=== PATIENT | female | born 1955 | race African-American/Black ===

== ENCOUNTER 2018-03-27 18:43 | Inpatient (IN) | payer OTHER ==
--- NOTE | 2018-03-27 18:48 | PDOC ---
Rapid Medical Evaluation Time Seen by Provider: 03/27/18 18:44 Medical Evaluation: Allergies Allergy/AdvReac Type Severity Reaction Status Date / Time No Known Allergies Allergy Verified 03/27/18 18:44 I have performed a brief in-person evaluation of this patient. The patient presents with a chief complaint of: left hand weakness x 3 days and slurred speech since yesterday Pertinent physical exam findings: slurred speech, weakness and mild droop of left hand I have ordered the following: head CT The patient will proceed to the ED for further evaluation. Discharge Disposition - Diagnosis Hand weakness, Slurred speech - Referrals - Patient Instructions - Post Discharge Activity
[2018-03-27 20:00] LABS: BASO % 1.1 % (0-2.0); EOS % 1.9 % (0-4.5); HEMATOCRIT 40.7 % (32.4-45.2); HEMOGLOBIN 13.5 GM/dL (10.7-15.3); LYMPH % 46.4 % (8-40); MCHC 33.1 g/dl (32.0-36.0); MEAN CELL VOLUME 84.7 fl (80-96); MEAN PLT VOLUME 8.9 fl (7.5-11.1); MONO % 9.5 % (3.8-10.2); NEUT % 41.1 % (42.8-82.8); PLATELET COUNT 243 K/MM3 (134-434); RBC 4.81 M/mm3 (3.60-5.2); RDW 13.6 % (11.6-15.6)
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
[2018-03-27 20:20] LABS: INR 1.11 (0.82-1.09); PROTHROMBIN TIME (PATIENT) 12.5 SEC (9.7-13.0)
[2018-03-27 20:23] LABS: ACTIVATED PTT 27.5 SECONDS (25.2-36.5)
[2018-03-27 20:33] LABS: ALBUMIN 3.9 g/dl (3.4-5.0); ANION GAP 6 (8-16); BLOOD UREA NITROGEN 12 mg/dL (7-18); CALCIUM 8.8 mg/dL (8.5-10.1); CHLORIDE 108 mmol/L (98-107); CO2 27 mmol/L (21-32); CREATININE 0.7 mg/dL (0.55-1.02); GLUCOSE,RANDOM 102 mg/dL (74-106); SGPT/ALT 34 U/L (12-78); SODIUM 141 mmol/L (136-145); TOT PROT 8.3 g/dl (6.4-8.2)
[2018-03-27 20:55] LABS: ALK PHOS 84 U/L (45-117); BILIRUBIN,TOTAL 0.5 mg/dL (0.2-1.0); SGOT/AST 24 U/L (15-37)
--- NOTE | 2018-03-27 21:38 | HP ---
Admitting History and Physical - Primary Care Physician PCP: Mari Quintana - Admission Chief Complaint: left arm weakness History of Present Illness: The patient is a 62 year old male with no significant past medical history who presents to the emergency department with left arm weakness for 3 days. The patient reports that she been unable to raise her arm above her head and notes that when she is carrying an object in her left hand she will unintentionally drop the object. She denies any slurred speech. She endorses a history of EtOH use and denies history of smoking. - - Smoking History Smoking history: Current every day smoker Have you smoked in the past 12 months: Yes Aproximately how many cigarettes per day: 7 - Alcohol/Substance Use Hx Alcohol Use: Yes Home Medications - Allergies Allergies/Adverse Reactions: Allergies Allergy/AdvReac Type Severity Reaction Status Date / Time No Known Allergies Allergy Verified 03/27/18 18:44 - Home Medications Home Medications: Ambulatory Orders NK [No Known Home Medication] 03/27/18 Review of Systems - Review of Systems Neurological: reports: Weakness Physical Examination Vital Signs: Vital Signs Temperature 98.6 F 03/27/18 18:47 Pulse Rate 97 H 03/27/18 18:47 Respiratory Rate 18 03/27/18 18:47 Blood Pressure 158/90 03/27/18 18:47 O2 Sat by Pulse Oximetry (%) 100 03/27/18 18:47 Constitutional: Yes: No Distress HENT: Yes: Atraumatic Neck: Yes: Supple Cardiovascular: Yes: Regular Rate and Rhythm Respiratory: Yes: CTA Bilaterally Gastrointestinal: Yes: Normal Bowel Sounds Extremities: Yes: WNL Edema: No Neurological: Yes: Alert, Oriented ...Motor Strength: LUE (4/5..hand) Labs: CBC, BMP 03/27/18 19:46 03/27/18 19:46 Problem List - Problems (1) Cerebrovascular accident (CVA) Assessment/Plan: awaiting mri other studies are done Code(s): I63.9 - CEREBRAL INFARCTION, UNSPECIFIED (2) Hand weakness Assessment/Plan: PT eval monitor Code(s): R29.898 - OTH SYMPTOMS AND SIGNS INVOLVING THE MUSCULOSKELETAL SYSTEM Assessment/Plan Laboratory Tests 03/27/18 03/27/18 03/27/18 19:46 19:46 19:46 WBC 8.0 RBC 4.81 Hgb 13.5 Hct 40.7 MCV 84.7 MCH 28.0 MCHC 33.1 RDW 13.6 Plt Count 243 MPV 8.9 Absolute Neuts (auto) 3.3 Neutrophils % 41.1 L Lymphocytes % 46.4 H Monocytes % 9.5 Eosinophils % 1.9 Basophils % 1.1 Nucleated RBC % 0 PT with INR 12.50 INR 1.11 PTT (Actin FS) 27.5 Sodium 141 Potassium 4.0 Chloride 108 H Carbon Dioxide 27 Anion Gap 6 L BUN 12 Creatinine 0.7 Creat Clearance w eGFR > 60 Random Glucose 102 Calcium 8.8 Total Bilirubin 0.5 AST 24 ALT 34 Alkaline Phosphatase 84 Creatine Kinase 454 H Troponin I < 0.02 Total Protein 8.3 H Albumin 3.9
[2018-03-27] MEDS ORDERED: ACETAMINOPHEN 325 MG TABLET (FP) PO PRN (21:49)
--- NOTE | 2018-03-28 08:47 | CON.NEURO ---
Consult Consult Specialty:: Neurology Referred by:: Dr. Quintana Reason for Consultation:: Left arm weakness - History of Present Illness Chief Complaint: Left Arm weakness for 3 days History of Present Illness: Patient reports onset of left arm weakness 3 days ago. Resisted coming to hospital but sisters kept harrassing her and finally she relented. No headache , chest pain or other ill feelings accompanied the weakness. She denies weakness elsewhere. Denies cocaine or illicit drug use. Doesn't have a regular doctor but says that she last saw a doctor 3 months ago for a "check up " and that she was fine. - History Source History Provided By: Patient, Medical Record Limitations to Obtaining History: No Limitations - Past Medical History GYN: Yes: Other (esotropia) - Alcohol/Substance Use Hx Alcohol Use: Yes - Smoking History Smoking history: Current every day smoker Have you smoked in the past 12 months: Yes Aproximately how many cigarettes per day: 7 Home Medications - Allergies Allergies/Adverse Reactions: Allergies Allergy/AdvReac Type Severity Reaction Status Date / Time No Known Allergies Allergy Verified 03/27/18 18:44 - Home Medications Home Medications: Ambulatory Orders NK [No Known Home Medication] 03/27/18 Physical Exam-Neuro Vital Signs: Vital Signs Temperature 98.6 F 03/27/18 18:47 Pulse Rate 90 03/28/18 06:34 Respiratory Rate 16 03/28/18 06:34 Blood Pressure 144/80 03/28/18 06:34 O2 Sat by Pulse Oximetry (%) 96 03/28/18 06:34 Constitutional: Yes: Well Nourished, No Distress, Calm Labs: CBC, BMP 03/27/18 19:46 03/27/18 19:46 INR, PTT INR 1.11 (0.82-1.09) 03/27/18 19:46 - Neuro Exam Level Of Consciousness: Yes: Alert, Oriented to Person, Oriented to Place, Oriented to Time Eyes: Yes: GHANSHYAM (EOMI but R esotropia) Speech: WNL Cranial Nerves II-XII Intact: No (right esotropia (long standing)) DTR's: 0 Left Achilles, 0 Right Achilles, 2+ Left Bicep, 2+ Right Bicep, 2+ Left Tricep, 2+ Right Tricep, 2+ Left Brachioradialis, 2+ Right Brachioradialis Babinski: Absent (withdrawal) Response to light touch: Normal Response to pain prick: Normal Motor Strength: 4/5: Left Arm (hand, rest of arm is strong), 5/5: Right Arm, Left Leg, Right Leg Gait: Normal NIH Stroke Scale - Last Known Well Date/Time & Onset Date Last Known Well: 03/24/18 - Initial Evaluation Level of consciousness: Alert Ask patient the month and their age: Answers both correctly Ask patient to open & close eyes; make fist and let go: Obeys both correctly Best gaze (horizontal eye movement): Partial gaze palsy Visual field testing: No visual field loss Facial paresis (Show teeth/raise eyebrows/close eyes tight): Normal symmetrical movement Motor Function: Left Arm: Normal Motor Function: Right Arm: Normal (extends arm 90 (or 45) degrees for 10 seconds without drift Motor Function: Left Leg: Normal (extends leg 30 degrees for 5 seconds without drift) Motor Function: Right Leg: Normal (extends leg 30 degrees for 5 seconds without drift) Limb Ataxia: No ataxia Sensory(Use pinprick test arms,legs,trunk,face/side to side): Normal Best language (Describe picture, name items, read sentences): No Aphasia Dysarthria (read several words): Normal articulation Extinction and Inattention: No abnormality (esotropia is only abnormality. She has no drift, but distal weakness which doesn't impact NIHSS) - Total Score NIH Stroke Scale Score: 1 Imaging - Results Cat Scan: Report Reviewed, Image Reviewed Problem List - Problems (1) Cerebrovascular accident (CVA) Code(s): I63.9 - CEREBRAL INFARCTION, UNSPECIFIED (2) Hand weakness Code(s): R29.898 - OT SYMPTOMS AND SIGNS INVOLVING THE MUSCULOSKELETAL SYSTEM (3) Slurred speech Code(s): R47.81 - SLURRED SPEECH Assessment/Plan Stroke, 3 days prior to presentation. Delayed going to ER, and knew that she should have but didn't want to. She should be started on ASA and statin, get lipid panel, urine tox screen though this may no longer show any metabolites, and have MRI, MRA, carotid studies, Echo with bubble study and secured entrance monitor, which if negative should be followed by longer term outpatient monitor. Thanks. Will follow up with you.
--- NOTE | 2018-03-28 11:53 | EKG ---
Test Reason : Blood Pressure : / mmHG Vent. Rate : 084 BPM Atrial Rate : 084 BPM P-R Int : 146 ms QRS Dur : 076 ms QT Int : 384 ms P-R-T Axes : 051 034 021 degrees QTc Int : 453 ms NORMAL SINUS RHYTHM POSSIBLE LEFT ATRIAL ENLARGEMENT LEFT VENTRICULAR HYPERTROPHY ABNORMAL ECG NO PREVIOUS ECGS AVAILABLE Confirmed by WINDY DOMINGO, GEORGE ([id number]) on 03/28/2018 11:52:43 AM Referred By: Confirmed By:GEORGE TEMPLE MD
--- NOTE | 2018-03-28 15:30 | CONSULT ---
Admitting History and Physical - Primary Care Physician PCP: Mari Quintana - Admission History of Present Illness: Per EMR: The patient is a 62 year old male with no significant past medical history who presents to the emergency department with left arm weakness for 3 days. The patient reports that she been unable to raise her arm above her head and notes that when she is carrying an object in her left hand she will unintentionally drop the object. She denies any slurred speech. She endorses a history of EtOH use and denies history of smoking. Pt denies changes in speech production or swallowing but drops items with left hand. 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: Other (esotropia) - Smoking History Smoking history: Current every day smoker Have you smoked in the past 12 months: Yes Aproximately how many cigarettes per day: 7 - Alcohol/Substance Use Hx Alcohol Use: Yes History - Admission Reason For Visit: CVA - Diagnostics CT Scan: Report Reviewed (Acute/subacute R TP and BG.) - General Mental Status: Alert and Oriented, Awake and Alert, Able to Follow Commands Attention: Intact Ability to Follow Directions: Good Head/Neck Control: WFL - Hearing Hearing: Functional Speech Evaluation - Communication Primary Language: KINYARWANDA Communication: Yes: Dysarthria Oral Expression Ability: Yes: Mild Impairment - Speech Production Able to Make Needs Known: Yes: WNL Intelligibility: Yes: Mildly Impaired - Speech Characteristics Voice Loudness: Normal Voice Pitch: Yes: Normal Voice Phonatory-based Quality: Yes: Normal Speech Clarity: < 100% Nasal Resonance: Hypernasal (mild?) Articulation: Yes: Imprecise - Language/Auditory Comprehension Follows: Yes: 1 Stage Simple Commands Observation: Able to respond to yes/no queries: Yes, Yes/No Confusion: No, Comprehends Conversational Speech: Yes - Language/Verbal Expression Able to Respond to Simple Queries: Yes: WNL Able to Communicate Wants and Needs: Yes: WNL Functional Communication Status: Yes: WNL - Swallow Evaluation/Bedside Assessment Current Nutritional Intake: Soft, Thin Liquids Oral Secretions: Yes: WFL Dentition: Yes: Edentulous (lower), Dental Appliance Upper Facial Symmetry at Rest: Facial Droop Left Against Resistance Opening: Normal Against Resistance Closing: Normal Pucker Lips: Normal Lingual Movement: Symmetric Lingual Speed of Movement: Normal Lingual Movement Strgth Against Opposition: Normal Lingual Movement Characteristics: Normal Laryngeal Elevation: WFL Laryngeal Movement: Able to Palpate Labial Seal: WFL Chewing: WFL (no lower dentition but eats reg food.) Oral Prep Time: WFL A-P Transit: WFL Pocketing: None Timing of Swallow: WFL Coughing/Throat Clear: No Change in Voice: No Recommendations - Speech Evaluation, Impression/Plan Impression: Dysarthria? Pt reports speech at baseline. Left facial. Mild Hypernasality? Swallowing overtly intact - Dysphagia Impressions/Plan Dysphagia Impressions: Minimal Impairment, Ongoing Evaluation *Silent aspiration: cannot be R/O at bedside Dysphagia Treatment Plan: Small Bites, Chin Tuck/Down, 1/2 tsp. at a time, OOB for meals, OOB for 1 h. after meals Recommendations: Modified Barium Swallow (if s/s of dysphagia) - Recommendations Diet Consistency: Regular (soft? pt wants regular) Medication Administration: Whole with water Liquids: Thin Liquids
--- NOTE | 2018-03-28 16:24 | PN ---
Progress Note, Physician - Current Medication List Current Medications: Active Medications Acetaminophen (Tylenol -) 650 mg PO Q6H PRN PRN Reason: FEVER Aspirin (Ecotrin -) 81 mg PO DAILY [facility] Atorvastatin Calcium (Lipitor -) 40 mg PO HS [facility] - Objective Vital Signs: Vital Signs Temperature 98.1 F 03/28/18 10:00 Pulse Rate 81 03/28/18 10:00 Respiratory Rate 19 03/28/18 10:00 Blood Pressure 144/88 03/28/18 10:00 O2 Sat by Pulse Oximetry (%) 96 03/28/18 09:00 Constitutional: Yes: No Distress HENT: Yes: Atraumatic Neck: Yes: Supple Cardiovascular: Yes: Regular Rate and Rhythm Respiratory: Yes: CTA Bilaterally Gastrointestinal: Yes: Normal Bowel Sounds Extremities: Yes: WNL Edema: No Peripheral Pulses WNL: Yes Neurological: Yes: Alert, Oriented ...Motor Strength: LUE (weak.. hand) Labs: CBC, BMP 03/27/18 19:46 03/27/18 19:46 INR, PTT INR 1.11 (0.82-1.09) 03/27/18 19:46 Problem List - Problems (1) Cerebrovascular accident (CVA) Assessment/Plan: awaiting mri other studies are done Code(s): I63.9 - CEREBRAL INFARCTION, UNSPECIFIED (2) Hand weakness Assessment/Plan: PT eval monitor Code(s): R29.898 - OTH SYMPTOMS AND SIGNS INVOLVING THE MUSCULOSKELETAL SYSTEM
[2018-03-28 17:07] VITALS: BMI 30.7
[2018-03-28] MEDS: ASPIRIN COATED 81 MG TABLET.EC PO SCH (18:42)
[2018-03-28] MEDS: ATORVASTATIN CA 40 MG TABLET (FP) PO SCH (21:52)
[2018-03-29] MEDS: ASPIRIN COATED 81 MG TABLET.EC PO SCH (10:36)
--- NOTE | 2018-03-29 16:22 | PN ---
Progress Note, Physician Chief Complaint: left hand weakness History of Present Illness: Patient reports onset of left arm weakness 3 days ago. Resisted coming to hospital but sisters kept harrassing her and finally she relented. No headache , chest pain or other ill feelings accompanied the weakness. She denies weakness elsewhere. Denies cocaine or illicit drug use. Doesn't have a regular doctor but says that she last saw a doctor 3 months ago for a "check up " and that she was fine. She has no real change overnight. - Current Medication List Current Medications: Active Medications Acetaminophen (Tylenol -) 650 mg PO Q6H PRN PRN Reason: FEVER Aspirin (Ecotrin -) 81 mg PO DAILY [facility] Last Admin: 03/29/18 10:36 Dose: 81 mg Atorvastatin Calcium (Lipitor -) 40 mg PO HS [facility] Last Admin: 03/28/18 21:52 Dose: 40 mg - Objective Vital Signs: Vital Signs Temperature 98.3 F 03/29/18 14:20 Pulse Rate 78 03/29/18 14:20 Respiratory Rate 18 03/29/18 14:20 Blood Pressure 139/57 03/29/18 14:20 O2 Sat by Pulse Oximetry (%) 98 03/28/18 21:00 Neurological: Yes: Alert, Oriented, Cran Nerves II-XII Intact ...Motor Strength: LUE (left hand mild weakness) Labs: CBC, BMP 03/27/18 19:46 03/27/18 19:46 INR, PTT INR 1.11 (0.82-1.09) 03/27/18 19:46 Problem List - Problems (1) Cerebrovascular accident (CVA) Code(s): I63.9 - CEREBRAL INFARCTION, UNSPECIFIED (2) Hand weakness Code(s): R29.898 - OT SYMPTOMS AND SIGNS INVOLVING THE MUSCULOSKELETAL SYSTEM (3) Slurred speech Code(s): R47.81 - SLURRED SPEECH Assessment/Plan Stroke, 3 days prior to presentation. Delayed going to ER, and knew that she should have but didn't want to. She should be started on ASA and statin, get lipid panel, urine tox screen though this may no longer show any metabolites, and have MRI, MRA, carotid studies, Echo with bubble study (bubble study not done here and can be deferred until outpatient) and cardiac cath lab technologist, which if negative should be followed by longer term outpatient monitor. Thanks. Will follow up with you.
--- NOTE | 2018-03-29 18:34 | PN ---
Progress Note, Physician - Current Medication List Current Medications: Active Medications Acetaminophen (Tylenol -) 650 mg PO Q6H PRN PRN Reason: FEVER Aspirin (Ecotrin -) 81 mg PO DAILY [facility] Last Admin: 03/29/18 10:36 Dose: 81 mg Atorvastatin Calcium (Lipitor -) 40 mg PO HS [facility] Last Admin: 03/28/18 21:52 Dose: 40 mg - Objective Vital Signs: Vital Signs Temperature 98.2 F 03/29/18 18:03 Pulse Rate 83 03/29/18 18:03 Respiratory Rate 18 03/29/18 18:03 Blood Pressure 140/92 03/29/18 18:03 O2 Sat by Pulse Oximetry (%) 98 03/28/18 21:00 Constitutional: Yes: No Distress HENT: Yes: Atraumatic Neck: Yes: Supple Cardiovascular: Yes: Regular Rate and Rhythm Respiratory: Yes: CTA Bilaterally Gastrointestinal: Yes: Normal Bowel Sounds Extremities: Yes: WNL Edema: No Peripheral Pulses WNL: Yes Neurological: Yes: Alert, Oriented ...Motor Strength: LUE (left hand weak 4/5) Labs: CBC, BMP 03/27/18 19:46 03/27/18 19:46 INR, PTT INR 1.11 (0.82-1.09) 03/27/18 19:46 Problem List - Problems (1) Cerebrovascular accident (CVA) Assessment/Plan: mri/mra waiting awaiting neuro input Code(s): I63.9 - CEREBRAL INFARCTION, UNSPECIFIED (2) Hand weakness Assessment/Plan: PT eval monitor Code(s): R29.898 - OTH SYMPTOMS AND SIGNS INVOLVING THE MUSCULOSKELETAL SYSTEM
[2018-03-29] MEDS: ATORVASTATIN CA 40 MG TABLET (FP) PO SCH (22:03)
[2018-03-30] MEDS: ASPIRIN COATED 81 MG TABLET.EC PO SCH (10:14)
--- NOTE | 2018-03-30 17:56 | CON.NEURO ---
Consult Consult Specialty:: NEUROLOGY-CHARLINE DOMINGO - History of Present Illness History of Present Illness: Patient reports onset of left arm weakness 3 days ago. Resisted coming to hospital but sisters kept harrassing her and finally she relented. No headache , chest pain or other ill feelings accompanied the weakness. She denies weakness elsewhere. Denies cocaine or illicit drug use. Doesn't have a regular doctor but says that she last saw a doctor 3 months ago for a "check up " and that she was fine. Reports no further neurologic symptoms. Exam- left arm pronator drift only. MRI/MRA brain-Right fronto/temp/parietal diffusion deficits. MRA- right M1 segment MCA thrombus, incidental left pcom aneurysm. A+P:Pt. with right MCA territory infarct, fortunately with minimal neurologic deficit, MCA thrombus is clearly evident on MRI.Pcom aneurysm is incidental, small and does not require intervention. Would place on ASA 325mg/Statin at current doses. Will follow up as outpt. with Dr. Pagan, i have given her our office# and my secretary to the vice president will call her on Sunday too. Will refer her to neuroradiology, Dr. Isma Pina for opinion re;possible endovascular rx. of MCA thrombus. 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: Other (esotropia) ...: No - Alcohol/Substance Use Hx Alcohol Use: Yes - Smoking History Smoking history: Current every day smoker Have you smoked in the past 12 months: Yes Aproximately how many cigarettes per day: 7 Home Medications - Allergies Allergies/Adverse Reactions: Allergies Allergy/AdvReac Type Severity Reaction Status Date / Time No Known Allergies Allergy Verified 03/27/18 18:44 - Home Medications Home Medications: Ambulatory Orders NK [No Known Home Medication] 03/27/18 Physical Exam-Neuro Vital Signs: Vital Signs Temperature 98.2 F 03/30/18 14:10 Pulse Rate 71 03/30/18 14:10 Respiratory Rate 20 03/30/18 14:10 Blood Pressure 134/57 03/30/18 14:10 O2 Sat by Pulse Oximetry (%) 97 03/30/18 09:00 Labs: CBC, BMP 03/27/18 19:46 03/27/18 19:46 INR, PTT INR 1.11 (0.82-1.09) 03/27/18 19:46
--- NOTE | 2018-03-30 17:58 | PN ---
Progress Note, Physician History of Present Illness: stable - Current Medication List Current Medications: Active Medications Acetaminophen (Tylenol -) 650 mg PO Q6H PRN PRN Reason: FEVER Aspirin (Ecotrin -) 81 mg PO DAILY [facility] Last Admin: 03/30/18 10:14 Dose: 81 mg Atorvastatin Calcium (Lipitor -) 40 mg PO HS [facility] Last Admin: 03/29/18 22:03 Dose: 40 mg - Objective Vital Signs: Vital Signs Temperature 98.2 F 03/30/18 14:10 Pulse Rate 71 03/30/18 14:10 Respiratory Rate 20 03/30/18 14:10 Blood Pressure 134/57 03/30/18 14:10 O2 Sat by Pulse Oximetry (%) 97 03/30/18 09:00 Constitutional: Yes: No Distress HENT: Yes: Atraumatic Neck: Yes: Supple Cardiovascular: Yes: Regular Rate and Rhythm Respiratory: Yes: CTA Bilaterally Gastrointestinal: Yes: Normal Bowel Sounds Extremities: Yes: Other (L hand wekness) Edema: No Neurological: Yes: Alert, Oriented Labs: CBC, BMP 03/27/18 19:46 03/27/18 19:46 INR, PTT INR 1.11 (0.82-1.09) 03/27/18 19:46 Problem List - Problems (1) Cerebrovascular accident (CVA) Assessment/Plan: mri/mra done report reviewed awaiting neuro input Code(s): I63.9 - CEREBRAL INFARCTION, UNSPECIFIED (2) Hand weakness Code(s): R29.898 - OTH SYMPTOMS AND SIGNS INVOLVING THE MUSCULOSKELETAL SYSTEM
--- NOTE | 2018-03-30 18:44 | DS ---
Physical Examination Vital Signs: Vital Signs Temperature 98.2 F 03/30/18 14:10 Pulse Rate 71 03/30/18 14:10 Respiratory Rate 20 03/30/18 14:10 Blood Pressure 134/57 03/30/18 14:10 O2 Sat by Pulse Oximetry (%) 97 03/30/18 09:00 Constitutional: Yes: No Distress HENT: Yes: Atraumatic Neck: Yes: Supple Cardiovascular: Yes: Regular Rate and Rhythm Respiratory: Yes: CTA Bilaterally Gastrointestinal: Yes: Normal Bowel Sounds Extremities: Yes: WNL Neurological: Yes: Alert, Oriented Labs: CBC, BMP 03/27/18 19:46 03/27/18 19:46 Discharge Summary Reason For Visit: CVA Current Active Problems Cerebrovascular accident (CVA) (Acute) Hand weakness (Acute) Slurred speech (Acute) Condition: Stable - Instructions Diet, Activity, Other Instructions: stop smoking stop drinking cannot go back to work until seen by neurology next week check lipid panel with pmd Referrals: Reena Anderson MD [Staff Physician] - Mari Quintana MD [Staff Physician] - - Home Medications Comprehensive Discharge Medication List: Ambulatory Orders Aspirin Coated [Ecotrin -] 325 mg PO DAILY #30 tablet. 03/30/18 Atorvastatin Ca [Lipitor] 40 mg PO HS #30 tablet 03/30/18 [facility] d/w dr castellon d/w parker henderson
[2018-03-30 19:08] VITALS: BP 161/85; PULSE 77; TEMP 97.7
[2018-03-31] MEDS ORDERED: ASPIRIN 325 MG ENTERIC COATED TABLET (FP) PO SCH (10:00)
== END 2018-03-30 19:45 | disposition home or self-care (01) | DRG 65 ==
LOC: JER 18:43 → JERBED 20:06 → OBSVTOIN 21:47 → J4W 03-28 15:23
PROVIDERS: ADMIT Internal Medicine; ATTEND Internal Medicine
DX: I63.9 Cerebral infarction, unspecified (principal); G81.94 Hemiplegia, unspecified affecting left nondominant side; F17.210 Nicotine dependence, cigarettes, uncomplicated; R47.81 Slurred speech; R29.703 NIHSS score 3
CPT/HCPCS: 36415; 70450-TC; 70544-TC; 70551-TC; 71046-TC-FY; 80053; 82550; 82553; 84484; 85025; 85610; 85730; 93005; 93010; 93306-TC; 93880-TC; 97116-GP; 97161-GP; 99285-25; G0378

== ENCOUNTER 2018-08-14 08:25 | Emergency (ER) | payer OTHER ==
[2018-08-14 08:32] VITALS: BMI 29.8
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
[2018-08-14] MEDS ORDERED: ACETAMINOPHEN 325 MG TABLET (FP) PO ONE (09:15)
[2018-08-14] MEDS ORDERED: ACETAMINOPHEN 325 MG TABLET (FP) ONE (09:32)
[2018-08-14 11:14] VITALS: BP 167/89; PULSE 87; TEMP 97.2
== END 2018-08-14 11:14 | disposition home or self-care (01) ==
LOC: JER 08:25
DX: M79.89 Other specified soft tissue disorders (principal); E78.5 Hyperlipidemia, unspecified; Z86.73 Personal history of transient ischemic attack (TIA), and cerebral infarction without residual deficits; Z87.891 Personal history of nicotine dependence; I10 Essential (primary) hypertension; Z79.01 Long term (current) use of anticoagulants
CPT/HCPCS: 93971-TC; 99282-25